=== PATIENT | male | born 1985 | race Two or more races ===

== ENCOUNTER 2019-12-21 00:21 | Inpatient (IN) | payer MEDICAID ==
[~2019-12-21] VITALS: Ht 167.6 cm; Wt 84.0 kg
[2019-12-21] VITALS (9 sets, daily range): BP systolic 97–129; BP diastolic 61–90
[2019-12-21 00:50] LABS: EOSINOPHILS # (AUTO) 0.1 X10'3 (0-0.9); EOSINOPHILS % (AUTO) 1.9 % (0-6); HEMATOCRIT 24.2 % (42.0-52.0); LYMPHOCYTES % (AUTO) 28.4 % (21-51); MEAN CORPUSCULAR HEMOGLOBIN 31.3 PG (27.0-31.0); MEAN CORPUSCULAR VOLUME 94.6 FL (78-98); MEAN PLATELET VOLUME 9.4 FL (7.4-10.4); MONOCYTES # (AUTO) 0.6 X10'3 (0-0.9); MONOCYTES % (AUTO) 15.9 % (2-12); NEUTROPHILS # (AUTO) 1.9 X10'3 (1.8-7.7); NEUTROPHILS % (AUTO) 52.8 % (42-75); PLATELET COUNT 141 X10'3 (140-440); RED BLOOD COUNT 2.55 X10'6 (4.70-6.10); RED CELL DISTRIBUTION WIDTH 16.2 % (11.5-14.5); WHITE BLOOD COUNT 3.7 X10'3 (4.5-11.0)
[2019-12-21 01:04] LABS: ALANINE AMINOTRANSFERASE 69 U/L (12-78); ALBUMIN 2.1 G/DL (3.4-5.0); ALBUMIN/GLOBULIN RATIO 0.4 (1.1-1.5); ALKALINE PHOSPHATASE 347 IU/L (46-116); ANION GAP 7 (8-16); ASPARTATE AMINO TRANSFERASE 104 U/L (10-37); BILIRUBIN,TOTAL 1.3 MG/DL (0.1-1.0); BLOOD UREA NITROGEN 12 MG/DL (7-18); BUN/CREATININE RATIO 12.8 (5.4-32.0); CALCIUM 7.8 MG/DL (8.5-10.1); CHLORIDE 107 MMOL/L (99-107); CREATININE 0.94 MG/DL (0.60-1.10); LIPASE 280 U/L (73-393); POTASSIUM 3.3 MMOL/L (3.5-5.1); SODIUM 140 MMOL/L (135-145); TOTAL CARBON DIOXIDE 25.8 MMOL/L (24-32); TOTAL PROTEIN 7.1 G/DL (6.4-8.2); eGFR > 90 ML/MIN
[2019-12-21 01:05] LABS: GLUCOSE 84 MG/DL (70-104)
[2019-12-21 01:15] LABS: ANISOCYTOSIS 1+; PLATELET ESTIMATE NORMAL; TOTAL CELLS COUNTED 100
[2019-12-21 01:16] LABS: HYPOCHROMASIA 2+
[2019-12-21] MEDS ORDERED: iohexol 300mg/ml 100ml inj. ONE (01:26)
[2019-12-21 01:44] LABS: CLARITY,URINE SLIGHTLY CLOUDY (Clear); COLOR,URINE AMBER (Yellow); GLUCOSE, URINE NEGATIVE (Neg); KETONES,URINE NEGATIVE (Neg); LEUKOCYTE ESTERASE ,URINE NEGATIVE (Neg); NITRITES, URINE NEGATIVE (Neg); OCCULT BLOOD,URINE NEGATIVE (Neg); PH,URINE 5.5 (4.8-8.0); PROTEIN,URINE TRACE mg/dl (Neg); UA COLLECTION TYPE CLN CATCH MIDSTREAM
[2019-12-21 01:51] LABS: BACTERIA,URINE NONE SEEN /HPF (Neg); RBC,URINE NONE SEEN /HPF (0-2); SQUAMOUS EPITHELIAL CELL,UR FEW /LPF (FEW); WBC,URINE 0-4 /HPF (0-4)
--- NOTE | 2019-12-21 02:32 | NUR ---
AT BEDSIDE ASSESSING PATIENT GOING OVER IMAGING RESULTS
[2019-12-21] MEDS ORDERED: NO HOME MEDS (02:48)
[2019-12-21 02:49] LABS: OCCULT BLOOD STOOL NEGATIVE (Neg)
[2019-12-21] MEDS ORDERED: acetaminophen 325mg tablet PO PRN (02:50)
[2019-12-21] MEDS ORDERED: potassium CL 10mEq/100ml bag 100 ML IV PRN ×2 (02:50)
[2019-12-21] MEDS ORDERED: potassium Cl 20 mEq SR tablet PO PRN ×2 (02:50)
[2019-12-21] MEDS ORDERED: magnesium 4gm in 100ml NS 100 ML IV PRN (02:50)
[2019-12-21] MEDS ORDERED: ondansetron/PF 4mg/2ml inj IV PRN (02:50)
[2019-12-21] MEDS ORDERED: mag hydrox/Alum hydrox/simeth 30ml oral suspension PO PRN (02:50)
[2019-12-21] MEDS ORDERED: pantoprazole 40 MG vial IV ONE (02:50)
[2019-12-21] MEDS ORDERED: CefTRIAXone/D5W-Rocephin 1gm 50 ML IV ONE (02:50)
[2019-12-21] MEDS ORDERED: magnesium hydroxide 30ml (MOM) UD suspension PO PRN (02:50)
[2019-12-21] MEDS ORDERED: magnesium Cl slow-release 64mg tablet PO PRN (02:50)
[2019-12-21] MEDS ORDERED: magnesium 2GM in 50ml NS 50 ML IV PRN (02:50)
[2019-12-21] MEDS ORDERED: octreotide inj. 500 MCG in normal saline 100ml IV soln 100 ML IV SCH (03:00)
[2019-12-21] MEDS: normal saline 1000ml 1,000 ML IV SCH ×3 (03:07→22:50)
--- NOTE | 2019-12-21 03:21 | NUR ---
Patient in room . I have received report from ANGEL Flower and had the opportunity to ask questions and assume patient care. Addendum: 12/21/19 at 0322 by Rosalinda Miller RN Amended: Links added.
--- NOTE | 2019-12-21 03:30 | NUR ---
pt to room 355A. pt. arrived to floor via gurney. oriented pt. to room and use of call light. will continue to monitor.
[2019-12-21] MEDS ORDERED: nicotine 14mg patch - 24hr TD ONE (03:50)
[2019-12-21] MEDS: morphine 2 MG/ML inj. syringe IV PRN ×5 (03:59→21:36)
[2019-12-21] MEDS ORDERED: pantoprazole 40MG/NS 100ML BAG 100 ML IV SCH (06:00)
--- NOTE | 2019-12-21 06:22 | NUR ---
Problems reprioritized. Patient report given, questions answered & plan of care reviewed with ANGEL Maddox. Addendum: 12/21/19 at 0623 by Rosalinda Miller RN Amended: Links added.
--- NOTE | 2019-12-21 06:31 | NUR ---
Patient in room [facility]. I have received report from Rosalinda ORTIZ and had the opportunity to ask questions and assume patient care.
[2019-12-21] MEDS: K and/or MAG REPLACEMENT MC SCH ×2 (08:00→20:00)
[2019-12-21 09:06] LABS: MEAN CORPUSCULAR HGB CONC 32.6 g/dL (33.0-36.5); MEAN CORPUSCULAR VOLUME 95.3 FL (78-98); MEAN PLATELET VOLUME 9.3 FL (7.4-10.4); PLATELET COUNT 120 X10'3 (140-440); RED BLOOD COUNT 2.17 X10'6 (4.70-6.10); RED CELL DISTRIBUTION WIDTH 16.2 % (11.5-14.5); WHITE BLOOD COUNT 2.8 X10'3 (4.5-11.0)
[2019-12-21 09:18] LABS: HEMATOCRIT 20.7 % (42.0-52.0); HEMOGLOBIN 6.7 g/dl (14.0-17.9)
[2019-12-21 09:31] LABS: ETHANOL < 0.010 GM/DL (0.0-0.010)
[2019-12-21] MEDS ORDERED: furosemide 40mg/4ml inj IV ONE (10:40)
--- NOTE | 2019-12-21 18:40 | NUR ---
Problems reprioritized. Patient report given, questions answered & plan of care reviewed with Rosalinda ORTIZ.
[2019-12-21 19:14] LABS: HEMATOCRIT 24.9 % (42.0-52.0); MEAN CORPUSCULAR HEMOGLOBIN 30.5 PG (27.0-31.0); MEAN CORPUSCULAR HGB CONC 32.3 g/dL (33.0-36.5); MEAN CORPUSCULAR VOLUME 94.5 FL (78-98); MEAN PLATELET VOLUME 9.6 FL (7.4-10.4); PLATELET COUNT 137 X10'3 (140-440); RED BLOOD COUNT 2.63 X10'6 (4.70-6.10); RED CELL DISTRIBUTION WIDTH 16.2 % (11.5-14.5); WHITE BLOOD COUNT 2.8 X10'3 (4.5-11.0)
[2019-12-21] MEDS: lactulose 20gm/30ml cup PO SCH (20:02)
[2019-12-21] MEDS: furosemide 40mg/4ml inj IV SCH (20:03)
[2019-12-22] VITALS: BP 123/83
--- NOTE | 2019-12-22 00:10 | NUR ---
Patient in room [facility]. I have received report from ANGEL Maddox and had the opportunity to ask questions and assume patient care. Addendum: 12/22/19 at 0016 by Rosalinda Miller RN Amended: Links added.
[2019-12-22] MEDS: morphine 2 MG/ML inj. syringe IV PRN ×5 (01:50→23:41)
[2019-12-22] MEDS ORDERED: morphine 2 MG/ML inj. syringe IV ONE (04:55)
--- NOTE | 2019-12-22 06:16 | NUR ---
Problems reprioritized. Patient report given, questions answered & plan of care reviewed with ANGEL Espinosa. Addendum: 12/22/19 at 0616 by Rosalinda Miller RN Amended: Links added.
[2019-12-22 07:56] VITALS: BP 111/75
[2019-12-22] MEDS: K and/or MAG REPLACEMENT MC SCH ×2 (08:00→20:00)
[2019-12-22 08:23] LABS: BASOPHILS % (AUTO) 1.2 % (0-1); EOSINOPHILS # (AUTO) 0.2 X10'3 (0-0.9); EOSINOPHILS % (AUTO) 4.3 % (0-6); HEMATOCRIT 24.6 % (42.0-52.0); LYMPHOCYTES % (AUTO) 28.5 % (21-51); MEAN CORPUSCULAR HEMOGLOBIN 30.6 PG (27.0-31.0); MEAN CORPUSCULAR HGB CONC 32.6 g/dL (33.0-36.5); MEAN CORPUSCULAR VOLUME 93.8 FL (78-98); MEAN PLATELET VOLUME 9.5 FL (7.4-10.4); MONOCYTES # (AUTO) 0.7 X10'3 (0-0.9); MONOCYTES % (AUTO) 18.8 % (2-12); NEUTROPHILS # (AUTO) 1.7 X10'3 (1.8-7.7); NEUTROPHILS % (AUTO) 47.2 % (42-75); PLATELET COUNT 126 X10'3 (140-440); RED BLOOD COUNT 2.62 X10'6 (4.70-6.10); RED CELL DISTRIBUTION WIDTH 16.2 % (11.5-14.5); WHITE BLOOD COUNT 3.6 X10'3 (4.5-11.0)
[2019-12-22] MEDS: spironolactone 50 MG tablet PO SCH (08:48)
[2019-12-22] MEDS: lactulose 20gm/30ml cup PO SCH ×2 (08:48→19:15)
[2019-12-22] MEDS: furosemide 40mg/4ml inj IV SCH ×2 (08:49→19:15)
[2019-12-22] MEDS: normal saline 1000ml 1,000 ML IV SCH (09:03)
[2019-12-22 09:20] LABS: ALANINE AMINOTRANSFERASE 57 U/L (12-78); ALBUMIN 1.8 G/DL (3.4-5.0); ALBUMIN/GLOBULIN RATIO 0.4 (1.1-1.5); ALKALINE PHOSPHATASE 290 IU/L (46-116); ANION GAP 6 (8-16); ASPARTATE AMINO TRANSFERASE 81 U/L (10-37); BLOOD UREA NITROGEN 9 MG/DL (7-18); BUN/CREATININE RATIO 12.5 (5.4-32.0); CALCIUM 7.4 MG/DL (8.5-10.1); CHLORIDE 110 MMOL/L (99-107); CREATININE 0.72 MG/DL (0.60-1.10); POTASSIUM 3.6 MMOL/L (3.5-5.1); SODIUM 141 MMOL/L (135-145); TOTAL CARBON DIOXIDE 24.7 MMOL/L (24-32); TOTAL PROTEIN 6.3 G/DL (6.4-8.2); eGFR > 90 ML/MIN
[2019-12-22 09:21] LABS: GLUCOSE 102 MG/DL (70-104)
--- NOTE | 2019-12-22 09:46 | NUR ---
Spoke to MD Cline about EGD. He verified that no EGD would need to be done and that pt. can continue on a low sodium diet. Plan for MD to consult with hepatic specialist.
[2019-12-22] MEDS ORDERED: HYDROcodone/acetaminophen 5mg/325mg tablet PO PRN (10:30)
[2019-12-22 11:10] LABS: ANISOCYTOSIS 1+; HYPOCHROMASIA 2+; PLATELET ESTIMATE DECREASED; TOTAL CELLS COUNTED 100
[2019-12-22 11:11] LABS: POLYCHROMASIA FEW
[2019-12-22 12:00] VITALS: BP 119/81
--- NOTE | 2019-12-22 13:59 | NUR ---
Paged hospitalist. Requested nicotine patch.
[2019-12-22] MEDS: HYDROcodone/acetaminophen 5mg/325mg tablet PO PRN ×2 (14:11→17:52)
--- NOTE | 2019-12-22 17:05 | NUR ---
PAGER ID: [phone] MESSAGE: Herberth Kashif 355A Records in chart. Can I please have a nicotine patch order. Also pt. pain in unrelieved at this time and he has had 2 [place] 5mg and 2mg MS. 02/27 R sided pain. Francisca [id number]
--- NOTE | 2019-12-22 17:56 | NUR ---
Patient in room [facility]. I have received report from Francisca ORTIZ and had the opportunity to ask questions and assume patient care.Student documentation:
--- NOTE | 2019-12-22 18:00 | NUR ---
Patient in room [facility]. I have received report from Francisca ORTIZ and had the opportunity to ask questions and assume patient care.
--- NOTE | 2019-12-22 18:21 | NUR ---
Gave report to Angela ORTIZ.
[2019-12-22 18:39] LABS: HEMATOCRIT 25.8 % (42.0-52.0); HEMOGLOBIN 8.3 g/dl (14.0-17.9); MEAN CORPUSCULAR HEMOGLOBIN 30.1 PG (27.0-31.0); MEAN CORPUSCULAR HGB CONC 32.4 g/dL (33.0-36.5); MEAN CORPUSCULAR VOLUME 92.9 FL (78-98); MEAN PLATELET VOLUME 9.5 FL (7.4-10.4); PLATELET COUNT 134 X10'3 (140-440); RED BLOOD COUNT 2.78 X10'6 (4.70-6.10); RED CELL DISTRIBUTION WIDTH 16.3 % (11.5-14.5); WHITE BLOOD COUNT 3.4 X10'3 (4.5-11.0)
[2019-12-22] MEDS: pantoprazole 40mg Tablet.DR PO SCH (19:15)
[2019-12-22 19:31] VITALS: BP 122/77
[2019-12-22 20:03] VITALS: BP 98/58
[2019-12-23] VITALS: BP 93/68
[2019-12-23] MEDS: morphine 2 MG/ML inj. syringe IV PRN ×2 (03:47→09:26)
--- NOTE | 2019-12-23 07:00 | NUR ---
Problems reprioritized. Patient report given, questions answered & plan of care reviewed with Raj ORTIZ.
[2019-12-23] MEDS: HYDROcodone/acetaminophen 5mg/325mg tablet PO PRN (07:03)
[2019-12-23 07:55] LABS: ALANINE AMINOTRANSFERASE 62 U/L (12-78); ALBUMIN 1.9 G/DL (3.4-5.0); ALBUMIN/GLOBULIN RATIO 0.4 (1.1-1.5); ALKALINE PHOSPHATASE 331 IU/L (46-116); ANION GAP 7 (8-16); ASPARTATE AMINO TRANSFERASE 94 U/L (10-37); BLOOD UREA NITROGEN 11 MG/DL (7-18); BUN/CREATININE RATIO 15.5 (5.4-32.0); CALCIUM 7.4 MG/DL (8.5-10.1); CHLORIDE 108 MMOL/L (99-107); CREATININE 0.71 MG/DL (0.60-1.10); MAGNESIUM 1.9 MG/DL (1.5-2.4); PHOSPHORUS 3.5 MG/DL (2.3-4.5); POTASSIUM 3.7 MMOL/L (3.5-5.1); SODIUM 141 MMOL/L (135-145); TOTAL CARBON DIOXIDE 26.3 MMOL/L (24-32); TOTAL PROTEIN 6.6 G/DL (6.4-8.2); eGFR > 90 ML/MIN
[2019-12-23 07:56] LABS: GLUCOSE 108 MG/DL (70-104)
[2019-12-23 08:00] VITALS: BP 108/67
[2019-12-23] MEDS: K and/or MAG REPLACEMENT MC SCH (08:00)
[2019-12-23] MEDS: lactulose 20gm/30ml cup PO SCH (08:00)
[2019-12-23 08:01] LABS: BASOPHILS % (AUTO) 0.9 % (0-1); EOSINOPHILS # (AUTO) 0.1 X10'3 (0-0.9); EOSINOPHILS % (AUTO) 3.7 % (0-6); HEMATOCRIT 25.9 % (42.0-52.0); HEMOGLOBIN 8.4 g/dl (14.0-17.9); LYMPHOCYTES % (AUTO) 28.2 % (21-51); MEAN CORPUSCULAR HEMOGLOBIN 30.2 PG (27.0-31.0); MEAN CORPUSCULAR HGB CONC 32.3 g/dL (33.0-36.5); MEAN CORPUSCULAR VOLUME 93.3 FL (78-98); MEAN PLATELET VOLUME 9.5 FL (7.4-10.4); MONOCYTES # (AUTO) 0.5 X10'3 (0-0.9); MONOCYTES % (AUTO) 14.6 % (2-12); NEUTROPHILS # (AUTO) 1.9 X10'3 (1.8-7.7); NEUTROPHILS % (AUTO) 52.6 % (42-75); PLATELET COUNT 129 X10'3 (140-440); RED BLOOD COUNT 2.78 X10'6 (4.70-6.10); RED CELL DISTRIBUTION WIDTH 16.3 % (11.5-14.5); WHITE BLOOD COUNT 3.7 X10'3 (4.5-11.0)
[2019-12-23] MEDS ORDERED: HYDROcodone/acetaminophen 10/325mg tab PO PRN (09:10)
[2019-12-23] MEDS ORDERED: piperacillin/tazo 4.5gm/100ml 100 ML IV ONE (09:10)
[2019-12-23] MEDS ORDERED: PANT40TA4 PO (09:15)
[2019-12-23] MEDS ORDERED: LACT10SO32 PO (09:15)
[2019-12-23] MEDS ORDERED: SPIR50TA5 PO (09:15)
[2019-12-23] MEDS ORDERED: PROP10TA10 PO (09:15)
[2019-12-23] MEDS ORDERED: FURO40TA4 PO (09:15)
[2019-12-23] MEDS ORDERED: LEVO500T2 PO (09:16)
[2019-12-23] MEDS ORDERED: METR-159 PO (09:16)
[2019-12-23] MEDS: spironolactone 50 MG tablet PO SCH (09:26)
[2019-12-23] MEDS: pantoprazole 40mg Tablet.DR PO SCH (09:26)
[2019-12-23] MEDS: furosemide 40mg/4ml inj IV SCH (09:26)
[2019-12-23] MEDS ORDERED: HYDR-4353 PO (11:22)
[2019-12-23 12:00] VITALS: BP_SYST 106; BP_SYST 108; BP_DIAS 67
--- NOTE | 2019-12-23 13:10 | NUR ---
Patient discharge to home transported via private vehicle. Patient alert, oriented, and appropriate for discharge. Patient verbalized understanding of discharge instructions, patient will make own appointment with DR. Turner with phone number provided on discharge. Patient IV's removed. Patient not on tele.
== END 2019-12-23 13:29 | disposition home or self-care (01) ==
LOC: ER 00:22 → ED HOLD 02:50 → UNDOADMOB 03:24 → ED HOLD 04:19 → SUR 3N 04:19 → CMPBEDREQ 04:55 → INTOOBSV 08:30 → OBSVTOIN 08:30
PROVIDERS: ADMIT Family Medicine; ATTEND Internal Medicine
PROC: 30233N1 Transfusion of Nonautologous Red Blood Cells into Peripheral Vein, Percutaneous Approach (ICD-10-PCS; principal; 2019-12-21)
DX: K81.0 Acute cholecystitis (principal); I85.10 Secondary esophageal varices without bleeding; E88.09 Other disorders of plasma-protein metabolism, not elsewhere classified; K74.60 Unspecified cirrhosis of liver; D53.9 Nutritional anemia, unspecified; R18.8 Other ascites; Z86.15 Personal history of latent tuberculosis infection; Z79.899 Other long term (current) drug therapy; Z22.7 Latent tuberculosis
CPT/HCPCS: 36415; 36430; 74176; 74181; 76700; 76937; 80053; 80320; 81001; 82103; 82140; 82272; 83690; 83735; 83880; 84100; 85025; 85027; 85610; 86803; 86885; 86900; 86901; 86920; 87081; C9113; G0378; J0696; J1940; J2270; J2354; J2543; J7030; P9016; Q9967